=== PATIENT | male | born 1985 | race Caucasian/White ===

== ENCOUNTER 2023-09-21 14:24 | Observation (INO) ==
--- NOTE | 2023-09-21 14:46 | ED Triage Note ---
Date of Service September 21, 2023 History of Present Illness This patient was briefly evaluated while in triage. An abbreviated physical exam was performed. This patient is a 38-year-old Male who presents to the ED for evaluation of sudden on of symptoms when walking up some steps, including feeling like his heart was racing and was lightheaded. He also experienced some shortness of breath. Patient denies any similar symptoms in the past. He denies any other recent upper respiratory infections. Patient currently denies any chest pain Physical Exam CONSTITUTIONAL: Healthy and well nourished. HEENT: No scleral icterus or conjunctival injection/pallor. NECK: Full active range of motion without discomfort. RESPIRATORY: Clear to auscultation bilaterally with no wheezing, crackles, rhonchi or stridor. CARDIOVASCULAR: Regular rate and rhythm with no murmurs, rubs or gallops. MUSCULOSKELETAL: Full range of motion of all joints without discomfort. Equal handgrip bilaterally INTEGUMENTARY: No rash or other significant dermatologic conditions noted. HEMATOLOGIC: No ecchymosis or petechiae. PSYCHIATRIC: Positive affect. NEUROLOGIC: No focal neurologic deficits noted. Initial orders for labs and / or imaging were placed and patient was placed in the waiting area until a bed is available. Please see further documentation for the full ED course.
--- NOTE | 2023-09-21 15:10 | XRay Report ---
XR chest 1V not portable HISTORY: Atypical chest pain. Weakness COMPARISON: None. FINDINGS: The lungs are clear. Cardiac silhouette is normal in size. No pleural effusions. No pneumot horax. Calcified AP window lymph nodes are noted. IMPRESSION: No acute process. ACT 112: Negative or not required by law. Electronically signed by: Yobani Cho M.D. 09/21/2023 3:09 PM
[2023-09-21 15:35] LABS: Appearance Urine Clear (Clear); Bilirubin Urine Negative (Negative); Blood Urine Negative (Negative); Color Urine Yellow; Glucose Urine UA Trace (Negative); Ketones Urine Negative (Negative); Leukocyte Esterase Urine Negative (Negative); Nitrite Urine Negative (Negative); Protein Urine Negative (Negative); Specific Gravity Urine 1.009 (1.000-1.030); Urobilinogen Urine Negative (Negative); pH Urine 7.5 (4.5-7.5)
[2023-09-21 15:40] LABS: Basophils # (auto) 0.09 K/uL (0.00-0.20); Basophils % (auto) 0.5 %; Eosinophils # (auto) 0.06 K/uL (0.00-0.50); Eosinophils % (auto) 0.3 %; Hematocrit (blood only) 43.4 % (42.0-52.0); Hemoglobin 15.5 g/dl (14.0-18.0); Immature Granulocytes # (auto) 0.16 K/uL (0.01-0.20); Immature Granulocytes % (auto) 0.9 %; Lymphocytes # (auto) 1.48 K/uL (1.20-3.40); Lymphocytes % (auto) 8.2 %; Mean Corpuscular Hemoglobin 30.9 pg (25.0-34.0); Mean Corpuscular Hgb Conc 35.7 g/dL (32.0-36.0); Mean Corpuscular Volume 86.5 fL (80.0-100.0); Mean Platelet Volume 10.6 fL (9.4-12.4); Monocytes # (auto) 1.06 K/uL (0.11-0.59); Monocytes % (auto) 5.9 %; Neutrophils # (auto) 15.19 K/uL (1.40-6.50); Neutrophils % (auto) 84.2 %; Platelet Count 274 K/uL (130-400); RDW Coefficient of Variation 11.9 % (11.5-14.5); RDW Standard Deviation 37.4 fL (36.4-46.3); Red Blood Count 5.02 M/uL (4.70-6.10); White Blood Count 18.04 K/ul (4.8-10.8)
--- NOTE | 2023-09-21 15:47 | Electrocardiogram Report ---
Test Reason : Blood Pressure : / mmHG Vent. Rate : 114 BPM Atrial Rate : 114 BPM P-R Int : 140 ms QRS Dur : 080 ms QT Int : 306 ms P-R-T Axes : 053 064 020 degrees QTc Int : 421 ms Sinus tachycardia Otherwise normal ECG No previous ECGs available Confirmed by Osman Smith ([id number]) on 09/21/2023 3:47:12 PM Referred By: Confirmed By:Osman Smith
[2023-09-21 15:54] LABS: Alanine Aminotransferase 46 U/L (7-52); Albumin Globulin Ratio 1.6 (0.9-2); Albumin Level 4.9 gm/dl (3.4-5.0); Alkaline Phosphatase 78 U/L (34-104); Anion Gap 8 (3-11); Aspartate Aminotransferase 26 U/L (13-39); BUN Creatinine Ratio 12.7 (10-20); Bilirubin,Total 0.6 mg/dl (0.2-1.0); Blood Urea Nitrogen 14 mg/dl (6-23); Calcium 10.6 mg/dl (8.6-10.3); Carbon Dioxide 28 mmol/L (21-32); Chloride 104 mmol/L (98-107); Est GFR (African American) 98.9 ml/min; Est GFR (Non-African American) 85.3 ml/min; Glucose 132 mg/dl (70-99(Fasting)); Sodium 140 mmol/L (136-145); Total Protein 7.9 gm/dl (6.0-8.3)
[2023-09-21 16:02] LABS: Partial Thromboplastin Time 27.3 Seconds (21.0-31.0)
[2023-09-21] MEDS ORDERED: SODIUM CHLORIDE 0.9% 1,000 ML IV ONE (16:06)
--- NOTE | 2023-09-21 16:08 | Emergency Department Note ---
Impression & Plan Elevated troponin ADMIT ED Provider Note HPI: History obtained from patient The patient is a 38-year-old gentleman with no significant past medical history stated, presents emergency department with a chief complaint of a sensation of palpitations and lightheadedness when he was going up some steps shortly prior to arrival to the ED. patient denies any chest pain, states he does not feel short of breath. On arrival here to the ED and on my initial assessment the patient is hemodynamically stable, he is noted to have some sinus tachycardia on the monitor in the 120s but otherwise appears to be in no acute distress. Patient states he feels improved from previous. Patient states his symptoms mostly resolved when he was in route via EMS. ROS: - Per HPI Differential Diagnosis: Arrhythmia to include SVT, atrial fibrillation with RVR, WPW, ventricular tachycardia, acute coronary syndrome, pulmonary embolism, myocarditis, pericarditis, amongst other potential pathologies. *Outpatient medications and allergy history reviewed. 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 Lab work shows a leukocytosis of 18, hemoglobin is normal, platelet count is normal, CMP does not show any critical findings, magnesium is within normal limits, procalcitonin is low, high-sensitivity troponin level is elevated at 138. Given the patient's sinus tachycardia with elevated troponin, CT angiography of the chest was obtained that does not show any evidence of PE. Lyme testing is positive for IgG, IgM is negative. Viral panel testing was obtained and the patient is positive for RSV, he admits to some cold type symptoms over about the past week. Patient was given IV fluids and delta troponin was obtained, delta troponin shows an uptrend to 283. On my reassessment the patient is resting comfortably in bed, tachycardia has downtrended into the low 100s, he remains hemodynamically stable, denies any chest pain or shortness of breath on my reassessment. Given the patient's troponin elevation with uptrend, I did recommend admission to which she was in agreement. Unclear source for the patient's symptoms at this time, I would suspect given the patient's history that he may have been suffering from an arrhythmia for some period of time that is causing some demand ischemia. Other etiologies would include possible myocarditis of some sort, amongst other potential pathologies. I discussed the case with the on-call hospitalist, Dr. Lew, and the patient was accepted to the inpatient service for further management. Consultants/Discussions held with other healthcare providers: -Hospitalist, Dr. Lew Disposition discussion held by myself with: -Patient Diagnosis: 1. Elevated troponin level, acute 2. Sensation of palpitations, acute 3. Sinus tachycardia, acute 4. Sensation of lightheadedness, transient, acute 5. RSV infection, acute 6. Lyme IgG positive Disposition: Admission Loco Jay DO Emergency Medicine Past Med/Surg History Social History Smoking Status: Never smoker Preferred Language: South Korean Feels Safe at Home: Yes Allergies Allergies Allergy/AdvReac Type Severity Reaction Status Date / Time No Known Allergies Allergy Unverified 09/21/23 18:27 Home Meds Home Medications Medication Instructions Recorded Confirmed losartan 50 mg tablet 75 mg PO QAM 09/21/23 09/21/23 omeprazole 20 mg capsule,delayed 20 mg PO QAM 09/21/23 09/21/23 release Results & Data (ED) Vital Signs Vital Signs - 24 hr 09/21/23 14:43 09/21/23 15:59 Temperature 36.8 C Temperature Source Temporal Artery Scan Pulse Rate 111 H 110 H Respiratory Rate 20 Respiratory Effort / Characteristics Non-Labored Spontaneous Respiratory Depth Normal Respiratory Pattern Regular Blood Pressure 128/84 Blood Pressure Mean 98 Blood Pressure Position Sitting Pulse Oximetry 100 Oxygen Delivery Method Room Air Sepsis Recent Fever Within 48 Hours No Sepsis New/Unexplained Change in Mental Status No Sepsis Action Taken by Nursing No Action Required Laboratory Data 09/21/23 15:23 09/21/23 15:23 Lab Results 09/21/23 09/21/23 09/21/23 Range/Units 15:22 15:23 15:24 WBC 18.04 H (4.8-10.8) K/ul RBC 5.02 (4.70-6.10) M/uL Hgb 15.5 (14.0-18.0) g/dl Hct 43.4 (42.0-52.0) % MCV 86.5 (80.0-100.0) fL MCH 30.9 (25.0-34.0) pg MCHC 35.7 (32.0-36.0) g/dL RDW Std Deviation 37.4 (36.4-46.3) fL RDW Coeff of Melissa 11.9 (11.5-14.5) % Plt Count 274 (130-400) K/uL MPV 10.6 (9.4-12.4) fL Immature Gran % (Auto) 0.9 % Neut % (Auto) 84.2 % Lymph % (Auto) 8.2 % [place] % (Auto) 5.9 % Eos % (Auto) 0.3 % Baso % (Auto) 0.5 % Neut # (Auto) 15.19 H (1.40-6.50) K/uL Lymph # (Auto) 1.48 (1.20-3.40) K/uL [place] # (Auto) 1.06 H (0.11-0.59) K/uL Eos # (Auto) 0.06 (0.00-0.50) K/uL Baso # (Auto) 0.09 (0.00-0.20) K/uL Immature Gran # (Auto) 0.16 (0.01-0.20) K/uL APTT 27.3 (21.0-31.0) Seconds PTT Ratio 1.0 Sodium 140 (136-145) mmol/L Potassium 4.0 (3.5-5.1) mmol/L Chloride 104 (98-107) mmol/L Carbon Dioxide 28 (21-32) mmol/L Anion Gap 8 (3-11) BUN 14 (6-23) mg/dl Creatinine 1.10 (0.6-1.4) mg/dl Est Cr Clr Drug Dosing Not Reportable Est GFR ( Amer) 98.9 ml/min Est GFR (Non-Af Amer) 85.3 ml/min BUN/Creatinine Ratio 12.7 (10-20) Glucose 132 H (70-99(Fasting)) mg/dl Calcium 10.6 H (8.6-10.3) mg/dl Magnesium 1.9 (1.7-2.4) mg/dl Total Bilirubin 0.6 (0.2-1.0) mg/dl AST 26 (13-39) U/L ALT 46 (7-52) U/L Alkaline Phosphatase 78 (34-104) U/L Troponin I High Sens 138.7 H* (0-20) pg/ml C-Reactive Protein (0-0.5) mg/dl Total Protein 7.9 (6.0-8.3) gm/dl Albumin 4.9 (3.4-5.0) gm/dl Globulin 3.0 (2.5-4.0) gm/dl Albumin/Globulin Ratio 1.6 (0.9-2) Procalcitonin < 0.05 (0-0.5) ng/ml TSH 3.326 (0.300-4.500) uIu/ml Urine Color Yellow Urine Appearance Clear (Clear) Urine pH 7.5 (4.5-7.5) Ur Specific [place] 1.009 (1.000-1.030) Urine Protein Negative (Negative) Urine Glucose (UA) Trace H (Negative) Urine Ketones Negative (Negative) Urine Blood Negative (Negative) Urine Nitrite Negative (Negative) Urine Bilirubin Negative (Negative) Urine Urobilinogen Negative (Negative) Ur Leukocyte Esterase Negative (Negative) Adenovirus (PCR) (NotDetected) B. pertussis DNA (PCR) (NotDetected) B.parapertussis DNA PCR (NotDetected) Lyme Disease IgG Ab Positive A (Negative) Lyme Disease IgM Ab Negative (Negative) C. pneumoniae DNA (PCR) (NotDetected) Coronavirus OC43 (PCR) (NotDetected) Coronavirus HKU1 (PCR) (NotDetected) Coronavirus 229E (PCR) (NotDetected) SARS-CoV-2 (PCR) (NotDetected) Coronavirus NL63 (PCR) (NotDetected) Human Metapneumovir PCR (NotDetected) Influenza Type A (PCR) (NotDetected) Influenza Type B (PCR) (NotDetected) M. pneumoniae (PCR) (NotDetected) Parainfluenza 1 (PCR) (NotDetected) Parainfluenza 2 (PCR) (NotDetected) Parainfluenza 3 (PCR) (NotDetected) Parainfluenza 4 (PCR) (NotDetected) RSV (PCR) (NotDetected) Entero/Rhino (PCR) (NotDetected) 09/21/23 09/21/23 Range/Units 16:22 17:33 WBC (4.8-10.8) K/ul RBC (4.70-6.10) M/uL Hgb (14.0-18.0) g/dl Hct (42.0-52.0) % MCV (80.0-100.0) fL MCH (25.0-34.0) pg MCHC (32.0-36.0) g/dL RDW Std Deviation (36.4-46.3) fL RDW Coeff of Melissa (11.5-14.5) % Plt Count (130-400) K/uL MPV (9.4-12.4) fL Immature Gran % (Auto) % Neut % (Auto) % Lymph % (Auto) % [place] % (Auto) % Eos % (Auto) % Baso % (Auto) % Neut # (Auto) (1.40-6.50) K/uL Lymph # (Auto) (1.20-3.40) K/uL [place] # (Auto) (0.11-0.59) K/uL Eos # (Auto) (0.00-0.50) K/uL Baso # (Auto) (0.00-0.20) K/uL Immature Gran # (Auto) (0.01-0.20) K/uL APTT (21.0-31.0) Seconds PTT Ratio Sodium (136-145) mmol/L Potassium (3.5-5.1) mmol/L Chloride (98-107) mmol/L Carbon Dioxide (21-32) mmol/L Anion Gap (3-11) BUN (6-23) mg/dl Creatinine (0.6-1.4) mg/dl Est Cr Clr Drug Dosing Est GFR ( Amer) ml/min Est GFR (Non-Af Amer) ml/min BUN/Creatinine Ratio (10-20) Glucose (70-99(Fasting)) mg/dl Calcium (8.6-10.3) mg/dl Magnesium (1.7-2.4) mg/dl Total Bilirubin (0.2-1.0) mg/dl AST (13-39) U/L ALT (7-52) U/L Alkaline Phosphatase (34-104) U/L Troponin I High Sens 283.5 H* D (0-20) pg/ml C-Reactive Protein < 0.50 (0-0.5) mg/dl Total Protein (6.0-8.3) gm/dl Albumin (3.4-5.0) gm/dl Globulin (2.5-4.0) gm/dl Albumin/Globulin Ratio (0.9-2) Procalcitonin (0-0.5) ng/ml TSH (0.300-4.500) uIu/ml Urine Color Urine Appearance (Clear) Urine pH (4.5-7.5) Ur Specific [place] (1.000-1.030) Urine Protein (Negative) Urine Glucose (UA) (Negative) Urine Ketones (Negative) Urine Blood (Negative) Urine Nitrite (Negative) Urine Bilirubin (Negative) Urine Urobilinogen (Negative) Ur Leukocyte Esterase (Negative) Adenovirus (PCR) Not Detected (NotDetected) B. pertussis DNA (PCR) Not Detected (NotDetected) B.parapertussis DNA PCR Not Detected (NotDetected) Lyme Disease IgG Ab (Negative) Lyme Disease IgM Ab (Negative) C. pneumoniae DNA (PCR) Not Detected (NotDetected) Coronavirus OC43 (PCR) Not Detected (NotDetected) Coronavirus HKU1 (PCR) Not Detected (NotDetected) Coronavirus 229E (PCR) Not Detected (NotDetected) SARS-CoV-2 (PCR) Not Detected (NotDetected) Coronavirus NL63 (PCR) Not Detected (NotDetected) Human Metapneumovir PCR Not Detected (NotDetected) Influenza Type A (PCR) Not Detected (NotDetected) Influenza Type B (PCR) Not Detected (NotDetected) M. pneumoniae (PCR) Not Detected (NotDetected) Parainfluenza 1 (PCR) Not Detected (NotDetected) Parainfluenza 2 (PCR) Not Detected (NotDetected) Parainfluenza 3 (PCR) Not Detected (NotDetected) Parainfluenza 4 (PCR) Not Detected (NotDetected) RSV (PCR) DETECTED A* (NotDetected) Entero/Rhino (PCR) Not Detected (NotDetected) Administered Medications Discontinued Medications Sodium Chloride (Nss) 1,000 mls @ 999 mls/hr IV .Q1H1M ONE Stop: 09/21/23 17:06 Last Admin: 09/21/23 16:37 Dose: 999 mls/hr Documented By: HALEY Ioversol (Optiray 320 500ml) 113 ml IV ONCE ONE Stop: 09/21/23 16:48 Last Admin: 09/21/23 16:50 Dose: 113 ml Documented By: KARY Imaging Data Radiologist's Impression: Chest X-Ray 09/21/23 14:47 XR chest 1V not portable HISTORY: Atypical chest pain. Weakness COMPARISON: None. FINDINGS: The lungs are clear. Cardiac silhouette is normal in size. No pleural effusions. No pneumothorax. Calcified AP window lymph nodes are noted. IMPRESSION: No acute process. ACT 112: Negative or not required by law. Electronically signed by: Yobani Cho M.D. 09/21/2023 3:09 PM Chest CTA 09/21/23 16:13 CT ANGIOGRAPHY OF THE CHEST, PULMONARY EMBOLUS PROTOCOL CLINICAL HISTORY: Shortness of breath. Lightheadedness. COMPARISON STUDY: Chest radiograph performed earlier today. TECHNIQUE: Following IV administration of 113 mL of Optiray, helical axial images of the chest were obtained utilizing the pulmonary embolus protocol. Maximal intensity projections and sagittal and coronal reformats were viewed on an independent 3D workstation. IV contrast was administered without complication. Automated exposure control was utilized for the study. A dose lowering technique was utilized adhering to the principles of ALARA. CT DOSE: 593.58 mGy.cm FINDINGS: No pulmonary emboli are identified. There is no thoracic aortic dissection. Size of the heart is normal. There is no pericardial effusion. No enlarged thoracic lymph nodes are present. There are calcified mediastinal and left hilar lymph nodes. There is a calcified granuloma within the spleen. Findings indicate a previous granulomatous process. No pneumothorax or pleural effusion is present. There are no pulmonary nodules. Central airways are patent. No acute fractures within the bony thorax are noted. Visualized portions of the upper abdomen are unremarkable. IMPRESSION: 1. No pulmonary emboli identified. 2. No acute intrathoracic findings. ACT 112: Negative or not required by law. Electronically signed by: Abhijeet Hannah M.D. 09/21/2023 4:59 PM Discharge Plan Visit Data Chief Complaint: Dizziness ED Provider: Loco Jay Discharge Problem: Elevated troponin Forms Stand Alone Forms: [facility] [place] Prescriptions Prescriptions: No Action losartan 50 mg tablet 75 mg PO QAM omeprazole 20 mg Capsule,Delayed Release(Dr/Ec) 20 mg PO QAM Referrals Referrals: PCP,NO [Physician] -
[2023-09-21 16:09] LABS: Troponin I High Sensitivity 138.7 pg/ml (0-20)
[2023-09-21 16:31] LABS: Magnesium 1.9 mg/dl (1.7-2.4)
[2023-09-21 16:47] LABS: Thyroid Stimulating Hormone 3.326 uIu/ml (0.300-4.500)
[2023-09-21] MEDS ORDERED: OPTIRAY 320 500ml IV ONE (16:47)
[2023-09-21 16:51] LABS: Procalcitonin < 0.05 ng/ml (0-0.5)
[2023-09-21 16:58] LABS: Lyme Ab IgG w/WB Rflx Positive (Negative); Lyme Ab IgM w/WB Rflx Negative (Negative)
--- NOTE | 2023-09-21 17:00 | CT Scan Report ---
CT ANGIOGRAPHY OF THE CHEST, PULMONARY EMBOLUS PROTOCOL CLINICAL HISTORY: Shortness of breath. Lightheadedness. COMPARISON STUDY: Chest radiograph performed earlier today. TECHNIQUE: Following IV administration of 113 mL of Optiray, helical axial images of the chest were o btained utilizing the pulmonary embolus protocol. Maximal intensity projections and sagittal and cor onal reformats were viewed on an independent 3D workstation. IV contrast was administered without co mplication. Automated exposure control was utilized for the study. A dose lowering technique was ut ilized adhering to the principles of ALARA. CT DOSE: 593.58 mGy.cm FINDINGS: No pulmonary emboli are identified. There is no thoracic aortic dissection. Size of the he art is normal. There is no pericardial effusion. No enlarged thoracic lymph nodes are present. There are calcified mediastinal and left hilar lymph nodes. There is a calcified granuloma within the splee n. Findings indicate a previous granulomatous process. No pneumothorax or pleural effusion is present . There are no pulmonary nodules. Central airways are patent. No acute fractures within the bony thor ax are noted. Visualized portions of the upper abdomen are unremarkable. IMPRESSION: 1. No pulmonary emboli identified. 2. No acute intrathoracic findings. ACT 112: Negative or not required by law. Electronically signed by: Abhijeet Hannah M.D. 09/21/2023 4:59 PM
[2023-09-21 17:35] LABS: Adenovirus PCR Not Detected (NotDetected); Bordetella parapertussis PCR Not Detected (NotDetected); Bordetella pertussis PCR Not Detected (NotDetected); Chlamydia pneumoniae PCR Not Detected (NotDetected); Coronavirus 229E PCR Not Detected (NotDetected); Coronavirus CoV-2 (COVID19)PCR Not Detected (NotDetected); Coronavirus HKU1 PCR Not Detected (NotDetected); Coronavirus NL63 PCR Not Detected (NotDetected); Coronavirus OC43PCR Not Detected (NotDetected); Human Metapneumovirus PCR Not Detected (NotDetected); Influenza A PCR Not Detected (NotDetected); Influenza B PCR Not Detected (NotDetected); Mycoplasma pneumoniae PCR Not Detected (NotDetected); Parainfluenza Virus 1 PCR Not Detected (NotDetected); Parainfluenza Virus 2 PCR Not Detected (NotDetected); Parainfluenza Virus 3 PCR Not Detected (NotDetected); Parainfluenza Virus 4 PCR Not Detected (NotDetected); Rhinovirus/Enterovirus PCR Not Detected (NotDetected)
[2023-09-21 17:39] LABS: Respiratory Syncytial VirusPCR DETECTED (NotDetected)
[2023-09-21 18:21] LABS: Troponin I High Sensitivity 283.5 pg/ml (0-20)
[2023-09-21 19:09] LABS: C Reactive Protein < 0.50 mg/dl (0-0.5)
--- NOTE | 2023-09-21 19:12 | History & Physical Report ---
Date of Service September 21, 2023 Assessment & Plan (1) Elevated troponin: Plan: ?from cardiac arrhythmia demand mismatch vs. CAD. Most likely the former however given risk factors of hypercholesterolemia and hypertension will trend troponins overnight and get stress echo tomorrow. Monitor on telemetry for recurrence of arrhythmias Lipid panel and HBA1C in AM to further assess cardiac risk factors (2) Pre-syncope: Plan: Suspect related to arrhythmia as above. Ok to continue losartan. (3) Hypertension: Plan: Continue losartan (4) GERD (gastroesophageal reflux disease): Plan: Switch omeprazole to pantoprazole per hospital formulary Plan VTE Prophylaxis - low risk Diet - heart healthy, NPO after midnight Disposition - observation to PCU Admission and Anticipated Discharge Date Admission Date: September 21, 2023 History of Present Illness Chief Complaint: Palpitations, presyncope Primary Care Provider: JAKOB BELLO Emilio Martinez is a 38 year old male who presents to the ER with presyncope, palpitations and shortness of breath. Started around 1:40pm. While walking up stairs in the parking lot. Lasted 20-30 minutes. [place] better when he got int the ambulance. He was starting to feel better when EMS took initial EKG. ASA given by EMS. He reports feeling completely well prior to this. Sudden onset. Associated chest tightness but no pain will it occurred. He is unsure about shortness of breath. Mild diaphoresis. No nausea. Main association was presyncope. Currently his symptoms have completely resolved. He is a non-smoker, no vaping. No family history of cardiac disease however his father has frequent PVCs. No prior history of stress testing. He takes losartan for controlled hypertension. He notes being told his cholesterol was previously high but not enough to warrant a statin. No known diabetes. No prior history of episodes like this. No prior history of exertional dyspnea or chest pain. He notes cold symptoms 8-9 days ago, finished 5 days ago. Sore throat, fatigue, nasal congestion. He tested positive for RSV in the ER. Allergies Allergy/AdvReac Type Severity Reaction Status Date / Time No Known Allergies Allergy Unverified 09/21/23 18:27 Home Medications Medication Instructions Recorded Confirmed Type losartan 50 mg tablet 75 mg PO QAM 09/21/23 09/21/23 History omeprazole 20 mg capsule,delayed 20 mg PO QAM 09/21/23 09/21/23 History release Past Med/Surg History Medical History (Updated 09/21/23 @ 19:20 by Jonathan Lew MD) GERD (gastroesophageal reflux disease) Hypertension Surgical History (Updated 09/21/23 @ 19:20 by Jonathan Lew MD) History of inguinal hernia repair Social History Smoking Status: Never smoker Do You Dip or Chew Tobacco: No; Hx Alcohol Use: Yes Alcohol type: beer and hard liquor Hx Substance Use: No Preferred Language: Yakut Communication Ability: Effective Manager Games Required: No Beliefs That Will Affect Care: None Current Living Situation: Spouse Current Living Situation Comment: with Feels Safe at Home: Yes Assistive Devices: None Review of Systems Review of Systems: All systems reviewed & are unremarkable except as noted in HPI & below Physical Exam Constitutional: WD/WN, vitals as above Eyes: + anicteric sclerae; normal pupil size ENMT: external ear and nose normal, oropharynx normal Respiratory: normal respiratory effort, lungs clear to auscultation Cardiovascular: RRR, no murmur, no edema Gastrointestinal (Abdomen): normal bowel sounds, soft, nontender, no hepatosplenomegaly Musculoskeletal: no cyanosis or clubbing, extremities motor strength 5/5 Skin: no rashes, warm and dry Neurologic: moves all extremities and awake; not confused Psychiatric: A+Ox3, euthymic affect Genitourinary: no CVA tenderness Results & Data Results & Data Vital Signs (Past 12 Hours) Vital Signs Temp Pulse Resp BP Pulse Ox O2 Del Method 09/21/23 15:59 110 H 09/21/23 14:43 36.8 C 111 H 20 128/84 100 Room Air Laboratory Results Abnormal lab results 09/21/23 09/21/23 09/21/23 Range/Units 15:22 15:23 15:24 WBC 18.04 H (4.8-10.8) K/ul RBC (4.70-6.10) M/uL Hct (42.0-52.0) % Neut # (Auto) 15.19 H (1.40-6.50) K/uL [place] # (Auto) 1.06 H (0.11-0.59) K/uL Glucose 132 H (70-99(Fasting)) mg/dl Calcium 10.6 H (8.6-10.3) mg/dl Troponin I High Sens 138.7 H* (0-20) pg/ml Urine Glucose (UA) Trace H (Negative) Lyme Disease IgG Ab Positive A (Negative) RSV (PCR) (NotDetected) 09/21/23 09/21/23 09/21/23 Range/Units 16:22 17:33 22:37 WBC (4.8-10.8) K/ul RBC (4.70-6.10) M/uL Hct (42.0-52.0) % Neut # (Auto) (1.40-6.50) K/uL [place] # (Auto) (0.11-0.59) K/uL Glucose (70-99(Fasting)) mg/dl Calcium (8.6-10.3) mg/dl Troponin I High Sens 283.5 H* D 232.8 H* (0-20) pg/ml Urine Glucose (UA) (Negative) Lyme Disease IgG Ab (Negative) RSV (PCR) DETECTED A* (NotDetected) Diagnostic Findings XR chest 1V not portable HISTORY: Atypical chest pain. Weakness COMPARISON: None. FINDINGS: The lungs are clear. Cardiac silhouette is normal in size. No pleural effusions. No pneumothorax. Calcified AP window lymph nodes are noted. IMPRESSION: No acute process. CT ANGIOGRAPHY OF THE CHEST, PULMONARY EMBOLUS PROTOCOL CLINICAL HISTORY: Shortness of breath. Lightheadedness. COMPARISON STUDY: Chest radiograph performed earlier today. TECHNIQUE: Following IV administration of 113 mL of Optiray, helical axial images of the chest were obtained utilizing the pulmonary embolus protocol. Maximal intensity projections and sagittal and coronal reformats were viewed on an independent 3D workstation. IV contrast was administered without complication. Automated exposure control was utilized for the study. A dose lowering technique was utilized adhering to the principles of ALARA. CT DOSE: 593.58 mGy.cm FINDINGS: No pulmonary emboli are identified. There is no thoracic aortic dissection. Size of the heart is normal. There is no pericardial effusion. No enlarged thoracic lymph nodes are present. There are calcified mediastinal and left hilar lymph nodes. There is a calcified granuloma within the spleen. Findings indicate a previous granulomatous process. No pneumothorax or pleural effusion is present. There are no pulmonary nodules. Central airways are patent. No acute fractures within the bony thorax are noted. Visualized portions of the upper abdomen are unremarkable. IMPRESSION: 1. No pulmonary emboli identified. 2. No acute intrathoracic findings. Medications Administered ER Medications Given: Normal saline 1000ml bolus ECG Rate (beats per minute): 114 Rhythm: sinus tachycardia Findings: no acute ischemic change Comparison ECG Date: no prior available Code Status & VTE Plan Code Status Full VTE Prophylaxis Plan VTE Prophylaxis will be ordered: No PG Care Time/CCT Total # of Minutes Spent Total Time Spent with Patient: Total time spent is greater than 50% in coordination of care (as documented) at patient's floor/unit and/or counseling patient: Coding Level of Care Code 81622 INT INP/OBS CARE 2MIN Diagnoses Elevated troponin R79.89 Pre-syncope R55 Hypertension I10 GERD (gastroesophageal reflux disease) K21.9
[2023-09-21] MEDS ORDERED: ACETAMINOPHEN 325 MG TAB PO PRN (22:03)
[2023-09-22] MEDS: LACTATED RINGER'S 1,000 ML IV SCH ×2 (01:34→08:25)
[2023-09-22 06:16] LABS: Basophils # (auto) 0.06 K/uL (0.00-0.20); Basophils % (auto) 0.6 %; Eosinophils # (auto) 0.22 K/uL (0.00-0.50); Eosinophils % (auto) 2.3 %; Hematocrit (blood only) 39.2 % (42.0-52.0); Immature Granulocytes # (auto) 0.11 K/uL (0.01-0.20); Immature Granulocytes % (auto) 1.1 %; Lymphocytes # (auto) 2.72 K/uL (1.20-3.40); Lymphocytes % (auto) 27.9 %; Mean Corpuscular Hemoglobin 30.8 pg (25.0-34.0); Mean Corpuscular Hgb Conc 35.7 g/dL (32.0-36.0); Mean Corpuscular Volume 86.2 fL (80.0-100.0); Mean Platelet Volume 10.7 fL (9.4-12.4); Monocytes % (auto) 7.2 %; Neutrophils # (auto) 5.95 K/uL (1.40-6.50); Neutrophils % (auto) 60.9 %; Platelet Count 247 K/uL (130-400); RDW Standard Deviation 37.6 fL (36.4-46.3); Red Blood Count 4.55 M/uL (4.70-6.10); White Blood Count 9.76 K/ul (4.8-10.8)
[2023-09-22 06:33] LABS: Calcium 9.3 mg/dl (8.6-10.3); Potassium 3.6 mmol/L (3.5-5.1)
[2023-09-22 06:38] LABS: BUN Creatinine Ratio 10.3 (10-20); Creatinine Clr Calc Pharmacy 97.3 ml/min; Est GFR (African American) 127.8 ml/min; Est GFR (Non-African American) 110.3 ml/min
--- NOTE | 2023-09-22 08:26 | Hospitalist Progress Note ---
Date of Service September 22, 2023 Assessment & Plan (1) Elevated troponin: Plan: ?from cardiac arrhythmia demand mismatch vs. CAD. Most likely the former however given risk factors of hypercholesterolemia and hypertension will trend troponins overnight and get stress echo tomorrow. Monitor on telemetry for recurrence of arrhythmias Lipid panel and HBA1C in AM to further assess cardiac risk factors (2) Pre-syncope: Plan: Suspect related to arrhythmia as above. Ok to continue losartan. (3) Hypertension: Plan: Continue losartan (4) GERD (gastroesophageal reflux disease): Plan: Switch omeprazole to pantoprazole per hospital formulary Plan RSV+ with recent URI symptoms that have resolved Lyme IgG+, IgM- VTE Prophylaxis - low risk Diet - heart healthy, NPO after midnight Disposition - observation to PCU Admission and Anticipated Discharge Date Admission Date: September 21, 2023 Results & Data Results & Data Vital Signs (Past 12 Hours) Vital Signs Temp Pulse Pulse Resp BP BP BP 09/22/23 08:05 98 H 09/22/23 08:02 36.8 C 85 16 148/77 H 09/22/23 06:31 36.2 C L 90 18 148/108 H 09/22/23 06:00 91 H 19 134/97 09/22/23 05:00 66 15 09/22/23 04:00 67 15 09/22/23 03:00 69 16 09/22/23 02:00 66 16 09/22/23 01:27 100 H 16 131/96 09/22/23 01:00 86 18 09/22/23 00:00 80 16 09/21/23 23:00 80 17 09/21/23 22:59 83 09/21/23 22:00 89 19 09/21/23 21:00 83 20 Pulse Ox O2 Del Method 09/22/23 08:05 09/22/23 08:02 97 Room Air 09/22/23 06:31 97 Room Air 09/22/23 06:00 100 09/22/23 05:00 09/22/23 04:00 09/22/23 03:00 09/22/23 02:00 09/22/23 01:27 98 Room Air 09/22/23 01:00 09/22/23 00:00 09/21/23 23:00 09/21/23 22:59 09/21/23 22:00 09/21/23 21:00 Diagnostic Findings Chest X-Ray 09/21/23 14:47 XR chest 1V not portable HISTORY: Atypical chest pain. Weakness COMPARISON: None. FINDINGS: The lungs are clear. Cardiac silhouette is normal in size. No pleural effusions. No pneumothorax. Calcified AP window lymph nodes are noted. IMPRESSION: No acute process. ACT 112: Negative or not required by law. Electronically signed by: Yobani Cho M.D. 09/21/2023 3:09 PM Chest CTA 09/21/23 16:13 CT ANGIOGRAPHY OF THE CHEST, PULMONARY EMBOLUS PROTOCOL CLINICAL HISTORY: Shortness of breath. Lightheadedness. COMPARISON STUDY: Chest radiograph performed earlier today. TECHNIQUE: Following IV administration of 113 mL of Optiray, helical axial images of the chest were obtained utilizing the pulmonary embolus protocol. Maximal intensity projections and sagittal and coronal reformats were viewed on an independent 3D workstation. IV contrast was administered without complication. Automated exposure control was utilized for the study. A dose lowering technique was utilized adhering to the principles of ALARA. CT DOSE: 593.58 mGy.cm FINDINGS: No pulmonary emboli are identified. There is no thoracic aortic dissection. Size of the heart is normal. There is no pericardial effusion. No enlarged thoracic lymph nodes are present. There are calcified mediastinal and left hilar lymph nodes. There is a calcified granuloma within the spleen. Findings indicate a previous granulomatous process. No pneumothorax or pleural effusion is present. There are no pulmonary nodules. Central airways are patent. No acute fractures within the bony thorax are noted. Visualized portions of the upper abdomen are unremarkable. IMPRESSION: 1. No pulmonary emboli identified. 2. No acute intrathoracic findings. ACT 112: Negative or not required by law. Electronically signed by: Abhijeet Hannah M.D. 09/21/2023 4:59 PM PG Care Time/CCT Total # of Minutes Spent Total Time Spent with Patient: Total time spent is greater than 50% in coordination of care (as documented) at patient's floor/unit and/or counseling patient: Coding Diagnoses Elevated troponin R79.89 Pre-syncope R55 Hypertension I10 GERD (gastroesophageal reflux disease) K21.9
[2023-09-22 08:28] LABS: Estimated Average Glucose 94 mg/dl; Hemoglobin A1C 4.9 % (4.5-5.6)
[2023-09-22] MEDS ORDERED: LOSARTAN POTASSIUM 25 MG TAB PO SCH (09:00)
[2023-09-22] MEDS ORDERED: PANTOprazole 40 MG TAB PO SCH (09:00)
[2023-09-22 10:19] LABS: Chol HDL Ratio 4.9 (0-5)
--- NOTE | 2023-09-22 11:55 | XCELERA ---
[id number] [id number]
--- NOTE | 2023-09-22 12:24 | Discharge Summary ---
Date of Service September 22, 2023 Admission HPI Per Admitting Provider Emilio Martinez is a 38 year old male who presents to the ER with presyncope, palpitations and shortness of breath. Started around 1:40pm. While walking up stairs in the parking lot. Lasted 20-30 minutes. [place] better when he got int the ambulance. He was starting to feel better when EMS took initial EKG. ASA given by EMS. He reports feeling completely well prior to this. Sudden onset. Associated chest tightness but no pain will it occurred. He is unsure about shortness of breath. Mild diaphoresis. No nausea. Main association was presyncope. Currently his symptoms have completely resolved. He is a non-smoker, no vaping. No family history of cardiac disease however his father has frequent PVCs. No prior history of stress testing. He takes losartan for controlled hypertension. He notes being told his cholesterol was previously high but not enough to warrant a statin. No known diabetes. No prior history of episodes like this. No prior history of exertional dyspnea or chest pain. He notes cold symptoms 8-9 days ago, finished 5 days ago. Sore throat, fatigue, nasal congestion. He tested positive for RSV in the ER. Principal Diagnosis Palpitations, pre-syncope, probable arrhythmia, mild troponin elevation, RSV infection Discharge Exam Last 24h vital signs reviewed, telemetry reviewed and no arrhythmias Young well-appearing man sitting in bed Heart reg no mrg Lungs CTAB normal resp effort no rrw Abd s/nd Skin w/d no rashes visible Ext: wwp no edema Discharge Data Allergies Allergy/AdvReac Type Severity Reaction Status Date / Time No Known Allergies Allergy Unverified 09/21/23 18:27 Consultations 09/21/23 18:49 ED Decision to Admit Stat Ordered Studies 09/21/23 16:13 CT angio chest PE protocol Stat Chest X-Ray 09/21/23 14:47 XR chest 1V not portable HISTORY: Atypical chest pain. Weakness COMPARISON: None. FINDINGS: The lungs are clear. Cardiac silhouette is normal in size. No pleural effusions. No pneumothorax. Calcified AP window lymph nodes are noted. IMPRESSION: No acute process. ACT 112: Negative or not required by law. Electronically signed by: Yobani Cho M.D. 09/21/2023 3:09 PM Chest CTA 09/21/23 16:13 CT ANGIOGRAPHY OF THE CHEST, PULMONARY EMBOLUS PROTOCOL CLINICAL HISTORY: Shortness of breath. Lightheadedness. COMPARISON STUDY: Chest radiograph performed earlier today. TECHNIQUE: Following IV administration of 113 mL of Optiray, helical axial images of the chest were obtained utilizing the pulmonary embolus protocol. Maximal intensity projections and sagittal and coronal reformats were viewed on an independent 3D workstation. IV contrast was administered without complication. Automated exposure control was utilized for the study. A dose lowering technique was utilized adhering to the principles of ALARA. CT DOSE: 593.58 mGy.cm FINDINGS: No pulmonary emboli are identified. There is no thoracic aortic dissection. Size of the heart is normal. There is no pericardial effusion. No enlarged thoracic lymph nodes are present. There are calcified mediastinal and left hilar lymph nodes. There is a calcified granuloma within the spleen. Findings indicate a previous granulomatous process. No pneumothorax or pleural effusion is present. There are no pulmonary nodules. Central airways are patent. No acute fractures within the bony thorax are noted. Visualized portions of the upper abdomen are unremarkable. IMPRESSION: 1. No pulmonary emboli identified. 2. No acute intrathoracic findings. ACT 112: Negative or not required by law. Electronically signed by: Abhijeet Hannah M.D. 09/21/2023 4:59 PM 09/22/23 09/22/23 09/21/23 Range/Units 07:00 05:42 22:37 WBC 9.76 (4.8-10.8) K/ul RBC 4.55 L (4.70-6.10) M/uL Hgb 14.0 (14.0-18.0) g/dl Hct 39.2 L (42.0-52.0) % MCV 86.2 (80.0-100.0) fL MCH 30.8 (25.0-34.0) pg MCHC 35.7 (32.0-36.0) g/dL RDW Std Deviation 37.6 (36.4-46.3) fL RDW Coeff of Melissa 12.0 (11.5-14.5) % Plt Count 247 (130-400) K/uL MPV 10.7 (9.4-12.4) fL Immature Gran % (Auto) 1.1 % Neut % (Auto) 60.9 % Lymph % (Auto) 27.9 % [place] % (Auto) 7.2 % Eos % (Auto) 2.3 % Baso % (Auto) 0.6 % Neut # (Auto) 5.95 (1.40-6.50) K/uL Lymph # (Auto) 2.72 (1.20-3.40) K/uL [place] # (Auto) 0.70 H (0.11-0.59) K/uL Eos # (Auto) 0.22 (0.00-0.50) K/uL Baso # (Auto) 0.06 (0.00-0.20) K/uL Immature Gran # (Auto) 0.11 (0.01-0.20) K/uL ESR (0-15) mm/hr PT (9.0-12.0) Seconds INR (0.9-1.1) APTT (21.0-31.0) Seconds PTT Ratio Sodium 140 (136-145) mmol/L Potassium 3.6 (3.5-5.1) mmol/L Chloride 107 (98-107) mmol/L Carbon Dioxide 26 (21-32) mmol/L Anion Gap 7 (3-11) BUN 9 (6-23) mg/dl Creatinine 0.87 (0.6-1.4) mg/dl Est Cr Clr Drug Dosing 97.3 Est GFR ( Amer) 127.8 ml/min Est GFR (Non-Af Amer) 110.3 ml/min BUN/Creatinine Ratio 10.3 (10-20) Glucose 103 H (70-99(Fasting)) mg/dl Estimat Average Glucose 94 mg/dl Hemoglobin A1c 4.9 (4.5-5.6) % Calcium 9.3 (8.6-10.3) mg/dl Magnesium (1.7-2.4) mg/dl Total Bilirubin (0.2-1.0) mg/dl AST (13-39) U/L ALT (7-52) U/L Alkaline Phosphatase (34-104) U/L Troponin I High Sens 121.1 H* D 232.8 H* (0-20) pg/ml C-Reactive Protein (0-0.5) mg/dl Total Protein (6.0-8.3) gm/dl Albumin (3.4-5.0) gm/dl Globulin (2.5-4.0) gm/dl Albumin/Globulin Ratio (0.9-2) Triglycerides 106 (0-150) mg/dl Cholesterol 235 H (0-200) mg/dl LDL Cholesterol, Calc 166 mg/dl VLDL Cholesterol, Calc 21 (0-30) mg/dl HDL Cholesterol 48 mg/dl Cholesterol/HDL Ratio 4.9 (0-5) Procalcitonin (0-0.5) ng/ml TSH (0.300-4.500) uIu/ml Urine Color Urine Appearance (Clear) Urine pH (4.5-7.5) Ur Specific [place] (1.000-1.030) Urine Protein (Negative) Urine Glucose (UA) (Negative) Urine Ketones (Negative) Urine Blood (Negative) Urine Nitrite (Negative) Urine Bilirubin (Negative) Urine Urobilinogen (Negative) Ur Leukocyte Esterase (Negative) Nasal Screen MRSA (PCR) Negative (Negative) Adenovirus (PCR) (NotDetected) B. pertussis DNA (PCR) (NotDetected) B.parapertussis DNA PCR (NotDetected) Lyme Disease IgG Ab (Negative) Lyme IgG (Western Blot) Lyme IgG 18 kDa Band Lyme IgG 23 kDa Band Lyme IgG 28 kDa Band Lyme IgG 30 kDa Band Lyme IgG 39 kDa Band Lyme IgG 41 kDa Band Lyme IgG 45 kDa Band Lyme IgG 58 kDa Band Lyme IgG 66 kDa Band Lyme IgG 93 kDa Band Lyme IgM Ab (WB) Lyme Disease IgM Ab (Negative) Lyme IgM 23 kDa Band Lyme IgM 39 kDa Band Lyme IgM 41 kDa Band C. pneumoniae DNA (PCR) (NotDetected) Coronavirus OC43 (PCR) (NotDetected) Coronavirus HKU1 (PCR) (NotDetected) Coronavirus 229E (PCR) (NotDetected) SARS-CoV-2 (PCR) (NotDetected) Coronavirus NL63 (PCR) (NotDetected) Human Metapneumovir PCR (NotDetected) Influenza Type A (PCR) (NotDetected) Influenza Type B (PCR) (NotDetected) M. pneumoniae (PCR) (NotDetected) Parainfluenza 1 (PCR) (NotDetected) Parainfluenza 2 (PCR) (NotDetected) Parainfluenza 3 (PCR) (NotDetected) Parainfluenza 4 (PCR) (NotDetected) RSV (PCR) (NotDetected) Entero/Rhino (PCR) (NotDetected) 09/21/23 09/21/23 09/21/23 Range/Units 17:33 16:22 15:24 WBC (4.8-10.8) K/ul RBC (4.70-6.10) M/uL Hgb (14.0-18.0) g/dl Hct (42.0-52.0) % MCV (80.0-100.0) fL MCH (25.0-34.0) pg MCHC (32.0-36.0) g/dL RDW Std Deviation (36.4-46.3) fL RDW Coeff of Melissa (11.5-14.5) % Plt Count (130-400) K/uL MPV (9.4-12.4) fL Immature Gran % (Auto) % Neut % (Auto) % Lymph % (Auto) % [place] % (Auto) % Eos % (Auto) % Baso % (Auto) % Neut # (Auto) (1.40-6.50) K/uL Lymph # (Auto) (1.20-3.40) K/uL [place] # (Auto) (0.11-0.59) K/uL Eos # (Auto) (0.00-0.50) K/uL Baso # (Auto) (0.00-0.20) K/uL Immature Gran # (Auto) (0.01-0.20) K/uL ESR (0-15) mm/hr PT (9.0-12.0) Seconds INR (0.9-1.1) APTT (21.0-31.0) Seconds PTT Ratio Sodium (136-145) mmol/L Potassium (3.5-5.1) mmol/L Chloride (98-107) mmol/L Carbon Dioxide (21-32) mmol/L Anion Gap (3-11) BUN (6-23) mg/dl Creatinine (0.6-1.4) mg/dl Est Cr Clr Drug Dosing Est GFR ( Amer) ml/min Est GFR (Non-Af Amer) ml/min BUN/Creatinine Ratio (10-20) Glucose (70-99(Fasting)) mg/dl Estimat Average Glucose mg/dl Hemoglobin A1c (4.5-5.6) % Calcium (8.6-10.3) mg/dl Magnesium (1.7-2.4) mg/dl Total Bilirubin (0.2-1.0) mg/dl AST (13-39) U/L ALT (7-52) U/L Alkaline Phosphatase (34-104) U/L Troponin I High Sens 283.5 H* D (0-20) pg/ml C-Reactive Protein < 0.50 (0-0.5) mg/dl Total Protein (6.0-8.3) gm/dl Albumin (3.4-5.0) gm/dl Globulin (2.5-4.0) gm/dl Albumin/Globulin Ratio (0.9-2) Triglycerides (0-150) mg/dl Cholesterol (0-200) mg/dl LDL Cholesterol, Calc mg/dl VLDL Cholesterol, Calc (0-30) mg/dl HDL Cholesterol mg/dl Cholesterol/HDL Ratio (0-5) Procalcitonin < 0.05 (0-0.5) ng/ml TSH (0.300-4.500) uIu/ml Urine Color Urine Appearance (Clear) Urine pH (4.5-7.5) Ur Specific [place] (1.000-1.030) Urine Protein (Negative) Urine Glucose (UA) (Negative) Urine Ketones (Negative) Urine Blood (Negative) Urine Nitrite (Negative) Urine Bilirubin (Negative) Urine Urobilinogen (Negative) Ur Leukocyte Esterase (Negative) Nasal Screen MRSA (PCR) (Negative) Adenovirus (PCR) Not Detected (NotDetected) B. pertussis DNA (PCR) Not Detected (NotDetected) B.parapertussis DNA PCR Not Detected (NotDetected) Lyme Disease IgG Ab Positive A (Negative) Lyme IgG (Western Blot) Pending Lyme IgG 18 kDa Band Pending Lyme IgG 23 kDa Band Pending Lyme IgG 28 kDa Band Pending Lyme IgG 30 kDa Band Pending Lyme IgG 39 kDa Band Pending Lyme IgG 41 kDa Band Pending Lyme IgG 45 kDa Band Pending Lyme IgG 58 kDa Band Pending Lyme IgG 66 kDa Band Pending Lyme IgG 93 kDa Band Pending Lyme IgM Ab (WB) Pending Lyme Disease IgM Ab Negative (Negative) Lyme IgM 23 kDa Band Pending Lyme IgM 39 kDa Band Pending Lyme IgM 41 kDa Band Pending C. pneumoniae DNA (PCR) Not Detected (NotDetected) Coronavirus OC43 (PCR) Not Detected (NotDetected) Coronavirus HKU1 (PCR) Not Detected (NotDetected) Coronavirus 229E (PCR) Not Detected (NotDetected) SARS-CoV-2 (PCR) Not Detected (NotDetected) Coronavirus NL63 (PCR) Not Detected (NotDetected) Human Metapneumovir PCR Not Detected (NotDetected) Influenza Type A (PCR) Not Detected (NotDetected) Influenza Type B (PCR) Not Detected (NotDetected) M. pneumoniae (PCR) Not Detected (NotDetected) Parainfluenza 1 (PCR) Not Detected (NotDetected) Parainfluenza 2 (PCR) Not Detected (NotDetected) Parainfluenza 3 (PCR) Not Detected (NotDetected) Parainfluenza 4 (PCR) Not Detected (NotDetected) RSV (PCR) DETECTED A* (NotDetected) Entero/Rhino (PCR) Not Detected (NotDetected) 09/21/23 09/21/23 Range/Units 15:23 15:22 WBC 18.04 H (4.8-10.8) K/ul RBC 5.02 (4.70-6.10) M/uL Hgb 15.5 (14.0-18.0) g/dl Hct 43.4 (42.0-52.0) % MCV 86.5 (80.0-100.0) fL MCH 30.9 (25.0-34.0) pg MCHC 35.7 (32.0-36.0) g/dL RDW Std Deviation 37.4 (36.4-46.3) fL RDW Coeff of Melissa 11.9 (11.5-14.5) % Plt Count 274 (130-400) K/uL MPV 10.6 (9.4-12.4) fL Immature Gran % (Auto) 0.9 % Neut % (Auto) 84.2 % Lymph % (Auto) 8.2 % [place] % (Auto) 5.9 % Eos % (Auto) 0.3 % Baso % (Auto) 0.5 % Neut # (Auto) 15.19 H (1.40-6.50) K/uL Lymph # (Auto) 1.48 (1.20-3.40) K/uL [place] # (Auto) 1.06 H (0.11-0.59) K/uL Eos # (Auto) 0.06 (0.00-0.50) K/uL Baso # (Auto) 0.09 (0.00-0.20) K/uL Immature Gran # (Auto) 0.16 (0.01-0.20) K/uL ESR 3 (0-15) mm/hr PT 11.0 (9.0-12.0) Seconds INR 1.0 (0.9-1.1) APTT 27.3 (21.0-31.0) Seconds PTT Ratio 1.0 Sodium 140 (136-145) mmol/L Potassium 4.0 (3.5-5.1) mmol/L Chloride 104 (98-107) mmol/L Carbon Dioxide 28 (21-32) mmol/L Anion Gap 8 (3-11) BUN 14 (6-23) mg/dl Creatinine 1.10 (0.6-1.4) mg/dl Est Cr Clr Drug Dosing Not Reportable Est GFR ( Amer) 98.9 ml/min Est GFR (Non-Af Amer) 85.3 ml/min BUN/Creatinine Ratio 12.7 (10-20) Glucose 132 H (70-99(Fasting)) mg/dl Estimat Average Glucose mg/dl Hemoglobin A1c (4.5-5.6) % Calcium 10.6 H (8.6-10.3) mg/dl Magnesium 1.9 (1.7-2.4) mg/dl Total Bilirubin 0.6 (0.2-1.0) mg/dl AST 26 (13-39) U/L ALT 46 (7-52) U/L Alkaline Phosphatase 78 (34-104) U/L Troponin I High Sens 138.7 H* (0-20) pg/ml C-Reactive Protein (0-0.5) mg/dl Total Protein 7.9 (6.0-8.3) gm/dl Albumin 4.9 (3.4-5.0) gm/dl Globulin 3.0 (2.5-4.0) gm/dl Albumin/Globulin Ratio 1.6 (0.9-2) Triglycerides (0-150) mg/dl Cholesterol (0-200) mg/dl LDL Cholesterol, Calc mg/dl VLDL Cholesterol, Calc (0-30) mg/dl HDL Cholesterol mg/dl Cholesterol/HDL Ratio (0-5) Procalcitonin (0-0.5) ng/ml TSH 3.326 (0.300-4.500) uIu/ml Urine Color Yellow Urine Appearance Clear (Clear) Urine pH 7.5 (4.5-7.5) Ur Specific [place] 1.009 (1.000-1.030) Urine Protein Negative (Negative) Urine Glucose (UA) Trace H (Negative) Urine Ketones Negative (Negative) Urine Blood Negative (Negative) Urine Nitrite Negative (Negative) Urine Bilirubin Negative (Negative) Urine Urobilinogen Negative (Negative) Ur Leukocyte Esterase Negative (Negative) Nasal Screen MRSA (PCR) (Negative) Adenovirus (PCR) (NotDetected) B. pertussis DNA (PCR) (NotDetected) B.parapertussis DNA PCR (NotDetected) Lyme Disease IgG Ab (Negative) Lyme IgG (Western Blot) Lyme IgG 18 kDa Band Lyme IgG 23 kDa Band Lyme IgG 28 kDa Band Lyme IgG 30 kDa Band Lyme IgG 39 kDa Band Lyme IgG 41 kDa Band Lyme IgG 45 kDa Band Lyme IgG 58 kDa Band Lyme IgG 66 kDa Band Lyme IgG 93 kDa Band Lyme IgM Ab (WB) Lyme Disease IgM Ab (Negative) Lyme IgM 23 kDa Band Lyme IgM 39 kDa Band Lyme IgM 41 kDa Band C. pneumoniae DNA (PCR) (NotDetected) Coronavirus OC43 (PCR) (NotDetected) Coronavirus HKU1 (PCR) (NotDetected) Coronavirus 229E (PCR) (NotDetected) SARS-CoV-2 (PCR) (NotDetected) Coronavirus NL63 (PCR) (NotDetected) Human Metapneumovir PCR (NotDetected) Influenza Type A (PCR) (NotDetected) Influenza Type B (PCR) (NotDetected) M. pneumoniae (PCR) (NotDetected) Parainfluenza 1 (PCR) (NotDetected) Parainfluenza 2 (PCR) (NotDetected) Parainfluenza 3 (PCR) (NotDetected) Parainfluenza 4 (PCR) (NotDetected) RSV (PCR) (NotDetected) Entero/Rhino (PCR) (NotDetected) Hospital Course (1) Elevated troponin: Dear Mr. Martinez, You had an episode of palpitations and lightheadedness (presyncope). Your evaluation was concerning for a slightly elevated high-sensitivity troponin level. EKG and Echocardiogram were normal. We considered heart attack which was ruled out, pulmonary embolism and arterial dissection which were ruled out with CT angiogram of the chest, myocarditis (inflamed heart muscle related to virus), and underlying coronary artery disease. Right now it seems most likely you had a brief heart arrhythmia that put your heart muscle under a little strain, resulting in the troponin being elevated. There were no arrhythmias on overnight monitoring. -we recommend following up with your local doctor for further testing like ambulatory heart rhythm monitor and cardiac stress test -your cholesterol is moderately elevated so we prescribed a low dose of rosuvastatin - the dose of this may need to be adjusted based on your body's response and further testing -you can take a baby aspirin once daily to reduce your cardiovascular risk until you finish the other testing, then decide whether you need to keep taking it -seek medical attention if you have recurrent symptoms of sustained lightheadedness, palpitations, loss of consciousness, shortness of breath or chest pain -your Lyme IgG was positive and IgM was negative. You do not have symptoms of acute Lyme infection. The IgG likely reflects past exposure to Lyme disease. -you tested positive for RSV virus. This typically causes cold-like symptoms in adults, and your symptoms have been resolving It was a pleasure taking care of you in the hospital Dilcia Cheney MD (2) Pre-syncope: (3) Hypertension: (4) GERD (gastroesophageal reflux disease): Total Time Total Time Spent Total Time Spent (In Minutes): 40 minutes coordinating care for discharge Discharge Plan Discharge Items Patient Disposition: Home - Self-Care Reason For Visit: PRESYNCOPE, ELEVATED TROPONIN Discharge Diagnosis: presyncope and palpitations, mild elevation of troponin, RSV Condition on Discharge: Good Activity: Resume your previous activity Non-emergency contact: Primary Care Provider Call non-emergency contact if: you have any medication questions Follow-up/Referrals: JAKOB BELLO [Other] Diet: Heart Healthy Addtl Attending Provider Instructions: Dear Mr. Martinez, You had an episode of palpitations and lightheadedness (presyncope). Your evaluation was concerning for a slightly elevated high-sensitivity troponin level. EKG and Echocardiogram were normal. We considered heart attack which was ruled out, pulmonary embolism and arterial dissection which were ruled out with CT angiogram of the chest, myocarditis (inflamed heart muscle related to virus), and underlying coronary artery disease. Right now it seems most likely you had a brief heart arrhythmia that put your heart muscle under a little strain, resulting in the troponin being elevated. There were no arrhythmias on overnight monitoring. -we recommend following up with your local doctor for further testing like ambulatory heart rhythm monitor and cardiac stress test -your cholesterol is moderately elevated so we prescribed a low dose of rosuvastatin - the dose of this may need to be adjusted based on your body's response and further testing -you can take a baby aspirin once daily to reduce your cardiovascular risk until you finish the other testing, then decide whether you need to keep taking it -seek medical attention if you have recurrent symptoms of sustained light headedness, palpitations, loss of consciousness, shortness of breath or chest pain -your Lyme IgG was positive and IgM was negative. You do not have symptoms of acute Lyme infection. The IgG likely reflects past exposure to Lyme disease. -you tested positive for RSV virus. This typically causes cold-like symptoms in adults, and your symptoms have been resolving It was a pleasure taking care of you in the hospital Dilcia Cheney MD Pending Studies at Discharge: No Stand-Alone Forms: My [facility] reportbrain, Smoking Cessation Medications and DC Order Prescriptions: New rosuvastatin 5 mg tablet 5 mg PO DAILY Qty: 30 0RF aspirin 81 mg tablet,chewable 81 mg PO DAILY Qty: 1 0RF Continued losartan 50 mg tablet 75 mg PO QAM omeprazole 20 mg Capsule,Delayed Release(Dr/Ec) 20 mg PO QAM Discharge Orders: Discharge Order (Routine); Ordered 09/22/23 Ordered By: Dilcia Cheney Admission Data Admit Date/Time: 09/21/23 18:57 Attending Provider: Dilcia Cheney Admit Provider: Jonathan Lew Primary Care Provider: JAKOB BELLO Other Providers: Jonathan Lew Coding Level of Care Code 01817 INP/OBS DISCH >30 MIN Diagnoses Elevated troponin R79.89 Pre-syncope R55 Hypertension I10 GERD (gastroesophageal reflux disease) K21.9
== END 2023-09-22 13:00 | disposition home or self-care (01) ==
LOC: ED 14:24 → EDINP 14:24 → SUATTDRO 18:57 → 1E 09-22 05:52